=== PATIENT | female | born 1990 | race African-American/Black ===

== ENCOUNTER 2016-10-05 17:00 | Emergency (ER) | payer SELFPAY ==
[~2016-10-05 17:00] MED LIST: AMOXICILLIN500 MG OR; BACTRIM DS1 TAB OR; BIRTH CONTROL; CIPRO500 MG OR; DEPO-PROVER150 MG/ML IM; FLEXERIL OR; NAPROSYN500 MG OR; NO HOME MEDS; PREVACID30 M2 PO; PYRIDIUM200 MG OR; PYRIDIUM200 MG PO
== END 2016-10-05 17:09 | disposition left against medical advice (07) | DRG 951 ==
LOC: ED 17:00 → LWOBS 17:09
DX: Z91.19 Patient's noncompliance with other medical treatment and regimen (principal)

== ENCOUNTER 2016-12-26 14:22 | Emergency (ER) | payer OTHER ==
[~2016-12-26] VITALS: Ht 160 cm; Wt 70.0 kg
[2016-12-26] MEDS ORDERED: PENICILLN VK500 MG PO (14:50)
[2016-12-26] MEDS ORDERED: LORTAB 5-325 MG1 TAB PO (14:50)
[2016-12-26 14:55] VITALS: BP 131/85
== END 2016-12-26 14:55 | disposition home or self-care (01) | DRG 159 ==
LOC: ED 14:22
DX: K08.89 Other specified disorders of teeth and supporting structures (principal)

== ENCOUNTER 2017-10-25 17:33 | Emergency (ER) | payer OTHER ==
[~2017-10-25] VITALS: Ht 160 cm; Wt 74.2 kg
[~2017-10-25 17:33] MED LIST changes: +LORTAB 5-325 MG1 TAB PO; +PENICILLN VK500 MG PO
[2017-10-25] MEDS ORDERED: TORADOL PO (17:50)
[2017-10-25] MEDS ORDERED: AMOXICILLIN500 M2 PO (17:50)
[2017-10-25 17:55] VITALS: BP 131/71
== END 2017-10-25 17:55 | disposition home or self-care (01) ==
LOC: ED 17:33
DX: J02.9 Acute pharyngitis, unspecified (principal)

== ENCOUNTER 2018-02-06 21:07 | Emergency (ER) | payer OTHER ==
[~2018-02-06] VITALS: Ht 160 cm; Wt 72.0 kg
[~2018-02-06 21:07] MED LIST changes: +AMOXICILLIN500 M2 PO; +TORADOL PO
[2018-02-06 21:41] VITALS: BP 117/75
== END 2018-02-06 21:40 | disposition home or self-care (01) ==
LOC: ED 21:07
DX: N76.0 Acute vaginitis (principal); N39.0 Urinary tract infection, site not specified

== ENCOUNTER 2019-01-04 20:10 | Emergency (ER) | payer SELFPAY ==
[~2019-01-04] VITALS: Ht 162.6 cm; Wt 78.0 kg
[2019-01-04 20:17] VITALS: BP 134/72
[2019-01-04] MEDS ORDERED: BACTROBAN TOP (20:40)
[2019-01-04] MEDS ORDERED: KEFLEX500 M1 PO (20:40)
== END 2019-01-04 21:00 | disposition home or self-care (01) | DRG 603 ==
LOC: ED 20:10
DX: L01.00 Impetigo, unspecified (principal)

== ENCOUNTER 2019-01-28 07:18 | Emergency (ER) | payer OTHER ==
[~2019-01-28] VITALS: Ht 162.6 cm; Wt 70.0 kg
[~2019-01-28 07:18] MED LIST changes: +AMOXICILLIN500 MG PO; +BACTROBAN TOP; +CLARITIN10 M1 PO; +KEFLEX500 M1 PO; +ONDANSETRON4 MG PO; +ULTRAM50 M1 PO
[2019-01-28 08:11] LABS: HEMATOCRIT 40.4 % (37.0-47.0); HEMOGLOBIN 12.4 g/dl (12.0-16.0); IMMATURE GRANULOCYTES 0.4 % (0.0-5.0); MEAN CELL VOLUME 83.8 fL CALC (80.0-100.0); MEAN CORPUSCULAR HGB 25.7 pG CALC (26.0-32.0); MEAN CORPUSCULAR HGB CONC 30.7 g/L CALC (32.0-36.0); NEUT# 7.35 thou/uL (2.00-7.15); RED BLOOD COUNT 4.82 mill/uL (4.20-5.60); RED CELL DISTRI WIDTH 13.1 % (11.5-15.5)
[2019-01-28 09:10] LABS: URINE BLOOD DIPSTICK SMALL (NEGATIVE); URINE COLOR YELLOW; URINE GLUCOSE - DIPSTICK NEGATIVE (NEGATIVE); URINE KETONE >=80 mg/dL (NEGATIVE); URINE LEUK ESTERASE NEGATIVE (NEGATIVE); URINE NITRITE - DIPSTICK NEGATIVE (Negative); URINE PROTEIN - DIPSTICK TRACE mg/dL (NEG-TRACE); URINE SPECIFIC GRAVITY 1.025
[2019-01-28 09:20] LABS: ALBUMIN 4.6 g/dL (3.2-5.0); ALKALINE PHOSPHATASE 77 u/l (38-126); ANION GAP 15 (6-22 (CALC)); BUN 9 mg/dL (7-17); BUN/CREATININE RATIO 13 (12-20 (CALC)); CARBON DIOXIDE 29 mmol/l (22-30); CHLORIDE 97 mmol/l (95-108); CREATININE 0.7 mg/dL (0.5-1.0); GFR > 60 ML/MIN (>=60 (CALC)); GFR FOR AFR.AMER. > 60 ML/MIN (>=60 (CALC)); LIPASE 36 u/l (23-300); POTASSIUM 3.9 mmol/l (3.5-5.1); SGOT/AST 19 u/l (14-36); SODIUM 137 mmol/l (137-146); TOTAL PROTEIN 8.3 g/dL (6.3-8.2)
[2019-01-28 09:24] LABS: URINE BILIRUBIN - DIPSTICK NEGATIVE (NEGATIVE)
[2019-01-28 09:25] LABS: URINE RBC 0-2 RBC/hpf (0-5); URINE WBC 0-2 WBC/hpf (0-5)
[2019-01-28 09:26] LABS: BILIRUBIN, TOTAL 0.3 mg/dL (0.0-1.4)
[2019-01-28] MEDS ORDERED: PHENERGAN25 MG/TAB PO (09:41)
[2019-01-28 09:56] VITALS: BP 148/72
== END 2019-01-28 10:12 | disposition home or self-care (01) ==
LOC: ED 07:18
PROVIDERS: Family Medicine
DX: J02.0 Streptococcal pharyngitis (principal)
CPT/HCPCS: J0561; J2540

== ENCOUNTER 2019-03-26 15:53 | Emergency (ER) | payer SELFPAY ==
[~2019-03-26] VITALS: Ht 162.6 cm; Wt 82.0 kg
[~2019-03-26 15:53] MED LIST changes: +PHENERGAN25 MG/TAB PO
[2019-03-26 17:10] VITALS: BP 129/82
== END 2019-03-26 17:10 | disposition home or self-care (01) | DRG 153 ==
LOC: ED 15:53
DX: J06.9 Acute upper respiratory infection, unspecified (principal)

== ENCOUNTER 2019-09-13 10:43 | Emergency (ER) | payer BC ==
[2019-09-13] MEDS ORDERED: BIRTH CONTROL PO (11:01)
[2019-09-13 12:08] LABS: HEMATOCRIT 42.5 % (37.0-47.0); IMMATURE GRANULOCYTES 0.2 % (0.0-5.0); MEAN CELL VOLUME 85.7 fL CALC (80.0-100.0); MEAN CORPUSCULAR HGB 26.2 pG CALC (26.0-32.0); MEAN CORPUSCULAR HGB CONC 30.6 g/dL CAL (32.0-36.0); NEUT# 3.65 thou/uL (2.00-7.15); RED BLOOD COUNT 4.96 mill/uL (4.20-5.60); RED CELL DISTRI WIDTH 13.1 % (11.5-15.5)
[2019-09-13 12:10] LABS: URINE BILIRUBIN - DIPSTICK NEGATIVE (NEGATIVE); URINE BLOOD DIPSTICK NEGATIVE (NEGATIVE); URINE COLOR YELLOW; URINE GLUCOSE - DIPSTICK NEGATIVE (NEGATIVE); URINE KETONE NEGATIVE (NEGATIVE); URINE LEUK ESTERASE NEGATIVE (NEGATIVE); URINE NITRITE - DIPSTICK NEGATIVE (Negative); URINE PROTEIN - DIPSTICK NEGATIVE (NEG-TRACE); URINE UROBILINOGEN - DIPSTICK 0.2 E.U./dL (0.2)
[2019-09-13 12:27] LABS: ALKALINE PHOSPHATASE 70 u/l (38-126); ANION GAP 13 (6-22 (CALC)); BILIRUBIN, TOTAL 0.3 mg/dL (0.0-1.4); BUN 12 mg/dL (7-17); BUN/CREATININE RATIO 19 (12-20 (CALC)); CARBON DIOXIDE 29 mmol/l (22-30); CHLORIDE 100 mmol/l (95-108); CREATININE 0.6 mg/dL (0.5-1.0); GFR > 60 ML/MIN (>=60 (CALC)); GFR FOR AFR.AMER. > 60 ML/MIN (>=60 (CALC)); POTASSIUM 3.9 mmol/l (3.5-5.1); SGOT/AST 25 u/l (14-36); SODIUM 139 mmol/l (137-146); TOTAL PROTEIN 9.1 g/dL (6.3-8.2)
[2019-09-13] MEDS ORDERED: REGLAN10 MG PO (13:34)
[2019-09-13] MEDS ORDERED: TORADOL PO (13:34)
[2019-09-13 13:44] VITALS: BP 97/58
== END 2019-09-13 13:51 | disposition home or self-care (01) | DRG 103 ==
LOC: ED 10:43
DX: G43.109 Migraine with aura, not intractable, without status migrainosus (principal)

== ENCOUNTER 2023-05-20 08:16 | Emergency (ER) | payer OTHER, BC ==
[2023-05-20] VITALS (7 sets, daily range): BP systolic 112–149; BP diastolic 68–92
[~2023-05-20] VITALS: Ht 162.6 cm; Wt 83.4 kg
[~2023-05-20 08:16] MED LIST changes: +BIRTH CONTROL PO; +REGLAN10 MG PO
[2023-05-20] MEDS ORDERED: NAPROXEN500 MG PO (11:22)
== END 2023-05-20 12:03 | disposition home or self-care (01) | DRG 90 ==
LOC: ED 08:16
DX: S06.0X0A Concussion without loss of consciousness, initial encounter (principal); V49.40XA Driver injured in collision with unspecified motor vehicles in traffic accident, initial encounter; M54.2 Cervicalgia